=== PATIENT | female | born 1950 | race Native Hawaiian/Other Pacific Islander ===

== ENCOUNTER 2017-06-24 06:30 | Day surgery (SDC) | payer MEDICARE, OTHER ==
[~2017-06-24 06:30] MED LIST: Ciprofloxacin 0.3% OPTH SOLN OS SCH; Flurbiprofen 0.03% Opht SOLN OS SCH; Lactated Ringer's 500 ML IV ONE; Phenylephrine 2.5% Opht Soln OS SCH; Tropicamide 1% Opht SOLUTION OS SCH; acetaZOLAMIDE 500 mg SR Cap PO ONE
[2017-06-24] MEDS ORDERED: Lactated Ringer's 500 ML IV ONE (07:11)
[2017-06-24 07:42] VITALS: O2SAT 100
[2017-06-24 07:47] VITALS: BMI 29.2
[2017-06-24] MEDS: Povidone Iodine Ophthalmic 5% Soln ONE ×2 (07:49→08:16)
[2017-06-24] MEDS: Hyaluronidase Human, Recombi 150 U/ML VIAL ONE ×2 (07:50→08:16)
[2017-06-24] MEDS: Lidocaine 2% Inj (20ml) ONE ×2 (07:50→08:16)
[2017-06-24] MEDS: Carbachol 0.01% IO ONE ×2 (07:51→08:25)
[2017-06-24] MEDS: Tetracaine 0.5% Ophth (OR ONLY) ONE ×2 (07:52→08:25)
[2017-06-24] MEDS: Chondroitin/Hyaluronate Opth Syringe KIT (0.55 ml-0.5 ml) IO ONE ×2 (07:52→08:25)
[2017-06-24] MEDS ORDERED: Midazolam 2 MG/2 ML VIAL ONE (07:53)
[2017-06-24] MEDS: Tobramycin/Dexamethasone OPHT OINT ONE ×2 (07:53→08:39)
[2017-06-24] MEDS ORDERED: Naloxone 0.4 mg/ml Inj (Adult) IVP PRN (08:46)
[2017-06-24] MEDS ORDERED: Lactated Ringer's 1,000 ML IV PRN (08:46)
[2017-06-24 10:07] VITALS: RESP 16
[2017-06-24] MEDS ORDERED: acetaZOLAMIDE 500 mg SR Cap PO ONE (10:15)
[2017-06-24 10:24] VITALS: BP 119/69; PULSE 64; TEMP 97.4
--- NOTE | 2017-06-24 12:55 | OP ---
PROCEDURE DATE: 06/24/2017 PREOPERATIVE DIAGNOSIS: Cataract, left eye. POSTOPERATIVE DIAGNOSIS: Cataract, left eye. PROCEDURE: Phacoemulsification, left eye and insertion of posterior chamber implant. SURGEON: Kory Hollins MD CO-SURGEON: Elliot Guerrero MD ANESTHESIA: Local IV sedation. DESCRIPTION OF PROCEDURE: The patient was brought into the operating room, placed in supine position, prepped and draped in the usual fashion for ophthalmic surgery. Lid speculum was inserted, lids and exposing globe. A side-port incision was made superiorly and inferiorly with a disposable sharp blade. Anterior chamber was filled with Viscoat. A near clear corneal incision was made temporally with a 2.75-mm keratome. Capsulorrhexis was then performed with Utrata forceps. Hydrodissection carried out with balanced salt solution. Nucleus was phacoemulsified. Remaining cortical fragments were removed with a split irrigation and aspiration system. The capsular sac was filled with Provisc. A posterior chamber lens was then injected into the capsular sac and rotated into horizontal position. Provisc was aspirated out of the anterior chamber. The pupil was constricted with Miochol. The wound was found to be watertight. Topical Betadine, Timoptic, and TobraDex ointment and pressure patch were applied. The patient tolerated the procedure well. Kory Hollins MD
== END 2017-06-24 10:35 | disposition home or self-care (01) ==
LOC: C.SDS 06:30
PROVIDERS: ATTEND Ophthalmology
DX: H25.12 Age-related nuclear cataract, left eye (principal)
CPT/HCPCS: 66984; J2250; J3010; J3470; J7120; V2632

== ENCOUNTER 2018-08-15 13:09 | Emergency (ER) | payer MEDICARE, OTHER ==
[2018-08-15 13:09] VITALS: BMI 19.9
[2018-08-15] MEDS ORDERED: Sodium Chloride 0.9% 500 ML IV STA (14:04)
[2018-08-15] MEDS ORDERED: Sodium Chloride 0.9% 1,000 ML ONE (14:35)
--- NOTE | 2018-08-15 14:35 | RAD ---
Date of service: 08/15/2018 PROCEDURE: CHEST RADIOGRAPH, 1 VIEW HISTORY: dizzy COMPARISON: 06/15/2017 FINDINGS: LUNGS: The lungs are well inflated and clear. PLEURA: No pneumothorax or pleural effusion. CARDIOVASCULAR: The heart is normal in size. There are aortic atherosclerotic calcifications present. OSSEOUS STRUCTURES: Within normal limits for the patient's age. Severe degenerative osteoarthrosis in the right glenohumeral joint VISUALIZED UPPER ABDOMEN: Normal. OTHER FINDINGS: None. IMPRESSION: No active pulmonary disease.
[2018-08-15 14:40] LABS: BASO % 0.5 % (0.0-2.0); EOS # 0.1 K/uL (0.0-0.7); EOS % 1.7 % (0.0-4.0); HEMOGLOBIN 11.9 g/dL (11.0-16.0); LYMPH # 1.7 K/uL (1.0-4.3); LYMPH % 33.1 % (20.0-40.0); MEAN CORPUSCULAR HEMOGLOBIN 25.7 pg (27.0-31.0); MEAN PLATELET VOLUME 8.5 fL (7.2-11.7); MONO # 0.4 K/uL (0.0-0.8); MONO % 8.2 % (0.0-10.0); NEUT # 2.9 K/uL (1.8-7.0); NEUT % 56.5 % (50.0-75.0); NRBC % 0.2 % (0.0-2.0); RBC 4.61 Mil/uL (3.80-5.20); RED CELL DISTRIBUTION WIDTH 17.8 % (11.5-14.5); WHITE BLOOD COUNT 5.1 K/uL (4.8-10.8)
[2018-08-15 14:45] LABS: MEAN CELL VOLUME 80.2 fL (81.0-99.0)
[2018-08-15 14:54] LABS: ALB/GLOB RATIO 1.3 (1.0-2.1); ALBUMIN 4.3 g/dL (3.5-5.0); ALT/SGPT 27 U/L (9-52); AST/SGOT 29 U/L (14-36); BLOOD UREA NITROGEN 11 mg/dL (7-17); CALCIUM 9.7 mg/dl (8.6-10.4); GFR NON-AFRICAN AMERICAN > 60
[2018-08-15 14:55] LABS: INR 1.7; PROTHROMBIN TIME 18.8 SECONDS (9.7-12.2)
[2018-08-15 15:05] LABS: CK-MB 0.38 ng/mL (0.0-3.38)
--- NOTE | 2018-08-15 15:31 | CT ---
Date of service: 08/15/2018 PROCEDURE: CT HEAD WITHOUT CONTRAST. HISTORY: dizzy COMPARISON: None available. TECHNIQUE: Axial computed tomography images were obtained through the head/brain without intravenous contrast. Radiation dose: Total exam DLP = 830.96 mGy-cm. This CT exam was performed using one or more of the following dose reduction techniques: Automated exposure control, adjustment of the mA and/or kV according to patient size, and/or use of iterative reconstruction technique. FINDINGS: HEMORRHAGE: No intracranial hemorrhage. BRAIN: Menon-white matter differentiation is preserved. There is no mass, mass effect or abnormal extra-axial fluid collection. There is no territorial infarction. The midline sagittal structures are normal. VENTRICLES: There is mild age-related global parenchymal volume loss and proportionate enlargement of the ventricles and cortical sulci. CALVARIUM: There is no calvarial fracture or extracranial soft tissue swelling. PARANASAL SINUSES: Predominantly clear. MASTOID AIR CELLS: Predominantly clear. OTHER FINDINGS: None. IMPRESSION: No acute intracranial abnormality.
--- NOTE | 2018-08-15 15:51 | C.PDOC ---
History Of Present Illness 68 y/o female presents to the ED complaining of headache and dizziness (described as room spinning) for the past 2 weeks. Patient reports symptoms have been gradually worsening. She is also complaining of lightheadedness. Patient has prior history of CVA years ago, but is able to ambulate with assistance. Per son, patient is able to function independently. Otherwise patient denies any new weakness, numbness, facial droop, visual loss, or change in speech. Also denies fevers, chills, neck stiffness, photophobia, or URI complaints. Of note patient is on coumadin. Time Seen by Provider: 08/15/18 13:42 Chief Complaint (Nursing): Dizziness/Lightheaded History Per: Patient History/Exam Limitations: no limitations Onset/Duration Of Symptoms: Days Current Symptoms Are (Timing): Still Present Seizure Or Post-ictal Symptoms: None Possible Causative Factor(s): Vertigo Fall Associated With With Symptoms: No Past Medical History Reviewed: Historical Data, Nursing Documentation, Vital Signs Vital Signs: Last Vital Signs Temp 97.5 F L 08/15/18 13:19 Pulse 65 08/15/18 13:19 Resp 18 08/15/18 13:19 BP Pulse Ox 100 08/15/18 13:19 - Medical History PMH: Arthritis (R KNEE), Gastrointestinal Ulcer, Gall Bladder Disease Denies: Chronic Kidney Disease Other PMH: Vertigo Surgical History: Cholecystectomy - [facility] Procedures CLOSED ENDOSCOPIC BIOPSY OF LARGE INTESTINE (05/25/14) ESOPHAGOGASTRODUODENOSCOPY [EGD] W/CLOSED BIOPSY (09/08/14) INTRAOPER CHOLANGIOGRAM (05/31/14) LAPAROSCOPIC CHOLECYSTECTOMY (05/31/14) PLICATION OF VENA CAVA (05/31/14) Family History: States: Unknown Family Hx - Social History Hx Tobacco Use: No Hx Alcohol Use: No Hx Substance Use: No - Immunization History Hx Tetanus Toxoid Vaccination: No Hx Influenza Vaccination: Yes Hx Pneumococcal Vaccination: No Review Of Systems Except As Marked, All Systems Reviewed And Found Negative. Constitutional: Negative for: Fever, Chills Eyes: Negative for: Vision Change ENT: Negative for: Nose Congestion, Throat Pain Cardiovascular: Negative for: Chest Pain, Palpitations Respiratory: Negative for: Cough, Shortness of Breath Gastrointestinal: Negative for: Nausea, Vomiting Musculoskeletal: Negative for: Neck Pain Skin: Negative for: Rash Neurological: Positive for: Headache, Dizziness. Negative for: Weakness, Numbness, Change in Speech, Confusion, Altered Mental Status, Other (LOC/syncope) Physical Exam - Physical Exam Appears: Non-toxic, No Acute Distress Skin: Warm, Dry Head: Atraumatic, Normacephalic Eye(s): bilateral: Normal Inspection, PERRL, EOMI Nose: Normal Oral Mucosa: Moist Neck: Normal ROM, Supple, Other (No meningeal signs) Chest: Symmetrical Cardiovascular: Rhythm Regular, No Murmur Respiratory: Normal Breath Sounds, No Rales, No Rhonchi, No Wheezing Gastrointestinal/Abdominal: Soft, No Tenderness, No Distention Extremity: Bilateral: Atraumatic, Normal Color And Temperature, Normal ROM (moving all extremities) Pulses: Left Radial: Normal, Right Radial: Normal Neurological/Psych: Oriented x3, Normal Cranial Nerves (2-12 grossly intact), Other (No focal deficits) ED Course And Treatment - Laboratory Results Result Diagrams: 08/15/18 14:35 08/15/18 14:35 Lab Results: PT 18.8 SECONDS (9.7-12.2) H 08/15/18 14:35 INR 1.7 08/15/18 14:35 APTT 35 SECONDS (21-34) H 08/15/18 14:35 Troponin I < 0.0120 ng/mL (0.00-0.120) 08/15/18 14:35 Total Bilirubin 0.7 mg/dL (0.2-1.3) 08/15/18 14:35 AST 29 U/L (14-36) 08/15/18 14:35 ALT 27 U/L (9-52) 08/15/18 14:35 Alkaline Phosphatase 94 U/L (38-126) 08/15/18 14:35 Total Protein 7.6 g/dL (6.3-8.3) 08/15/18 14:35 Albumin 4.3 g/dL (3.5-5.0) 08/15/18 14:35 Globulin 3.3 gm/dL (2.2-3.9) 08/15/18 14:35 Albumin/Globulin Ratio 1.3 (1.0-2.1) 08/15/18 14:35 O2 Sat by Pulse Oximetry: 100 (RA) Pulse Ox Interpretation: Normal - Other Rad CXR X-Ray: Read By Radiologist Interpretation: Accession No. : [id number]. Patient Name / ID : RIANA FINN / [id number]. Exam Date : 08/15/2018 14:06:36 ( Approved ). Study Comment : Sex / Age : F / 68Y. Creator : Georgina Batres MD. Dictator : Georgina Batres MD. Teletypesetter Monitor : Manager Chinese : Georgina Batres MD. Approver2 : Report Date : 08/15/2018 14:32:03. My Comment : . Date of service: 08/15/2018. PROCEDURE: CHEST RADIOGRAPH, 1 VIEW. HISTORY: dizzy. COMPARISON: 06/15/2017. FINDINGS: LUNGS: The lungs are well inflated and clear. PLEURA: No pneumothorax or pleural effusion. CARDIOVASCULAR: The heart is normal in size. There are aortic atherosclerotic calcifications present. OSSEOUS STRUCTURES: Within normal limits for the patient's age. Severe degenerative osteoarthrosis in the right glenohumeral joint. VISUALIZED UPPER ABDOMEN: Normal. OTHER FINDINGS: None. IMPRESSION: No active pulmonary disease. - CT Scan/US CT Head Other Rad Studies (CT/US): Read By Radiologist, Radiology Report Reviewed CT/US Interpretation: Patient Name / ID : RIANA FINN / [id number]. Exam Date : 08/15/2018 15:09:52 ( Approved ). Study Comment : Sex / Age : F / 68Y. Creator : Georgina Batres MD. Dictator : Georgina Batres MD. Teletypesetter Monitor : Manager Chinese : Georgina Batres MD. Approver2 : Report Date : 08/15/2018 15:27:31. My Comment : . Date of service: 08/15/2018. PROCEDURE: CT HEAD WITHOUT CONTRAST. HISTORY: dizzy. COMPARISON: None available. TECHNIQUE: Axial computed tomography images were obtained through the head/brain without intravenous contrast. Radiation dose: Total exam DLP = 830.96 mGy-cm. This CT exam was performed using one or more of the following dose reduction techniques: Automated exposure control, adjustment of the mA and/or kV according to patient size, and/or use of iterative reconstruction technique. FINDINGS: HEMORRHAGE: No intracranial hemorrhage. BRAIN: Menon-white matter differentiation is preserved. There is no mass, mass effect or abnormal extra-axial fluid collection. There is no territorial infarction. The midline sagittal structures are normal. VENTRICLES: There is mild age-related global parenchymal volume loss and proportionate enlargement of the ventricles and cortical sulci. CALVARIUM: There is no calvarial fracture or extracranial soft tissue swelling. PARANASAL SINUSES: Predominantly clear. MASTOID AIR CELLS: Predominantly clear. OTHER FINDINGS: None. IMPRESSION: No acute intracranial abnormality. Progress Note: Blood work and urine sent to the lab. EKG and CXR ordered and reviewed. Pending CT Head. IV fluids and 25 mg PO meclizine administered. [id number] Letha Cuevas, he requested patient to be d/c home and wants patient to follow up in his office tomorrow. On re-eval patient sts she feels better and agreed with the plan to be d/c home and to follow up with tomorrow. - Physician Consult Information Time Consulting Physician Contacted: 17:32 Physician Contacted: Manjinder Cuevas Outcome Of Conversation: Discussed case with Dr. Letha Cuevas, recommends patient be discharged home with meclizine, to follow up in the office tomorrow. Disposition - Disposition Referrals: Manjinder Cuevas MD [Staff Provider] - Disposition: HOME/ ROUTINE Disposition Time: 17:44 Condition: STABLE Additional Instructions: Follow up with PMD tomorrow. Return to ED if feel worse. Prescriptions: Meclizine [Meclizine*] 25 mg PO Q6 #30 tab Instructions: Vertigo (a Type of Dizziness) (DC) Forms: [employer] (Polish) - Clinical Impression Clinical Impression: Dizziness - PA / DATASTAGE CONSULTANT / Resident Statement MD/DO has reviewed & agrees with the documentation as recorded. - Scribe Statement The provider has reviewed the documentation as recorded by the Scribtsering Núñez All medical record entries made by the Scribe were at my direction and personally dictated by me. I have reviewed the chart and agree that the record accurately reflects my personal performance of the history, physical exam, medical decision making, and the department course for this patient. I have also personally directed, reviewed, and agree with the discharge instructions and disposition.
[2018-08-15 17:09] LABS: SQUAMOUS EPITHIAL < 1 /hpf (0-5); URINE BILIRUBIN NEGATIVE (NEGATIVE); URINE BLOOD NEGATIVE (NEGATIVE); URINE CLARITY Clear (Clear); URINE COLOR Colorless (YELLOW); URINE GLUCOSE (UA) NORMAL (Normal); URINE LEUKOCYTE ESTERASE NEG Leu/uL (Negative); URINE PROTEIN NEGATIVE (NEGATIVE); URINE UROBILINOGEN NORMAL mg/dL (0.2-1.0)
[2018-08-15 17:50] VITALS: PULSE 76; RESP 14; TEMP 97.9
[2018-08-15 17:51] VITALS: BP 151/91
[2018-08-15 18:40] VITALS: O2SAT 100
--- NOTE | 2018-08-16 21:30 | CARD ---
APPROVED REPORT Date of service: 08/15/2018 EKG Measurement Heart [id number] <Conclusion> Normal sinus rhythm Voltage criteria for left ventricular hypertrophy Abnormal ECG
== END 2018-08-15 18:10 | disposition home or self-care (01) ==
LOC: C.ER 13:09
DX: R42 Dizziness and giddiness (principal); Z86.73 Personal history of transient ischemic attack (TIA), and cerebral infarction without residual deficits; Z79.01 Long term (current) use of anticoagulants
CPT/HCPCS: 70450; 71045; 80053; 81001; 82550; 82553; 84484; 85025; 85610; 85730; 93005; 96360; 99285; J7040

== ENCOUNTER 2018-11-01 07:25 | Outpatient (CLI) | payer MEDICARE, OTHER | END 2018-11-01 07:26 | disposition home or self-care (01) | LOC: C.RADH 07:25 | DX: M15.9 Polyosteoarthritis, unspecified (principal) ==